=== PATIENT | male | born 1965 | race Caucasian/White ===

== ENCOUNTER 2017-01-26 06:35 | Day surgery (SDC) | payer OTHER ==
[2017-01-26] MEDS ORDERED: Lactated Ringers 1,000 ML IV SCH (07:00)
[2017-01-26] MEDS ORDERED: fentaNYL 100 MCG/2 ML SDV ONE (07:11)
[2017-01-26] MEDS ORDERED: Midazolam 1 MG/ML 2 ML SDV ONE (07:11)
[2017-01-26] MEDS ORDERED: Propofol 200 MG/20 ML SDV ONE (07:11)
[2017-01-26 09:20] VITALS: BP 114/71
--- NOTE | 2017-01-26 15:08 | OR ---
DATE OF PROCEDURE: 01/27/2016 PREOPERATIVE DIAGNOSIS: Colon cancer screening. POSTOPERATIVE DIAGNOSIS: Diverticulosis. PROCEDURE: Colonoscopy to the cecum. ANESTHESIA: IV anesthesia with monitored anesthesia care. INDICATION: This 51-year-old white male is referred for a colonoscopy for colon cancer screening. He has never had a colonoscopic exam. I counseled him for the procedure including risks and alternatives, and he gave his informed consent to proceed. PROCEDURE IN DETAIL: The patient was placed in the left lateral decubitus position. IV anesthesia was administered by the Anesthesia Service. Time-out was held. A rectal exam was performed, which was unremarkable. The flexible video Olympus colonoscope was introduced through his anus, up his rectum, and out his colon all the way to the cecum. Once the cecum was reached, the scope was slowly withdrawn examining the mucosa throughout. En route to the cecum, we did see a single diverticulum on the left side. As the scope was withdrawn from the cecum, no other lesions were noted. The scope was retroflexed in the rectum with the distal rectum appearing unremarkable. The scope was straightened and removed. He tolerated the procedure well. Amanuel Krause MD /[id number]
== END 2017-01-26 09:25 | disposition home or self-care (01) ==
LOC: JP.SDS 06:35
PROVIDERS: ATTEND Surgery
DX: Z12.11 Encounter for screening for malignant neoplasm of colon (principal); K57.30 Diverticulosis of large intestine without perforation or abscess without bleeding
CPT/HCPCS: 45378; J2250; J2704; J3010; J7120